=== PATIENT | male | born 1980 | race Two or more races ===

== ENCOUNTER 2020-05-19 14:37 | Emergency (ER) | payer SELFPAY ==
--- NOTE | 2020-05-19 15:03 | ER Document Report ---
ED General - General Chief Complaint: Rib Pain Stated Complaint: RIB INJURY Time Seen by Provider: 05/19/20 14:55 Primary Care Provider: [facility] [Provider Group] - Follow up as needed - HPI Notes: Patient is a 39-year-old male with no medical history who presents with right lower rib pain that began yesterday. Patient states he was in [facility] and did a maneuver where he felt a sudden "crunch" and sharp pain to his right lower ribs. He has tried a lidocaine patch and Robinson bandage with minimal relief. He denies shortness of breath, chest pain or any other injury. Patient is a current everyday smoker. Past Medical History - General Information source: Patient - Social History Smoking Status: Current Every Day Smoker Family History: Reviewed & Not Pertinent Review of Systems - Review of Systems Constitutional: No symptoms reported EENT: No symptoms reported Cardiovascular: No symptoms reported Respiratory: No symptoms reported Gastrointestinal: No symptoms reported Genitourinary: No symptoms reported Male Genitourinary: No symptoms reported Musculoskeletal: See HPI Skin: No symptoms reported Hematologic/Lymphatic: No symptoms reported Neurological/Psychological: No symptoms reported Physical Exam - Vital signs Vitals: Temp Pulse Resp BP Pulse Ox 97.9 F 59 L 18 138/73 H 95 05/19/20 14:43 05/19/20 14:43 05/19/20 14:43 05/19/20 14:43 05/19/20 14:43 - Notes Notes: PHYSICAL EXAMINATION: VITALS: Vitals reviewed and within normal limits. GENERAL: Well-appearing, well-nourished and in no acute distress. HEAD: Atraumatic, normocephalic. EYES: Pupils equal, round, and reactive to light, extraocular movements intact, sclera anicteric, conjunctiva are normal. ENT: Nares patent. Moist mucous membranes. Oropharynx clear without exudates. NECK: Normal range of motion, supple without lymphadenopathy. LUNGS: Breath sounds clear to auscultation bilaterally and equal. No wheezes, rales, or rhonchi. HEART: Regular, rate, and rhythm without murmurs. CHEST WALL: Tenderness with palpable step-off to right lower rib. No paradoxical chest wall movement. No abrasions or ecchymosis. ABDOMEN: Soft, nontender, normoactive bowel sounds. No guarding, no rebound. No masses appreciated. EXTREMITIES: Normal range of motion, no pitting or edema. No cyanosis. NEUROLOGICAL: No focal neurological deficits. Moves all extremities spontaneously and on command. PSYCH: Normal mood, normal affect. SKIN: Warm, Dry, normal turgor, no rashes or lesions noted. Course - Re-evaluation Re-evalutation: Patient presents after right lower rib injury, complaining of focal pain to the affected area. No tachypnea or hypoxemia at time of arrival. Chest x-ray without evidence of acute fracture, pneumothorax or pulmonary contusion. At this time will discharge with return precautions and follow-up recommendations. Verbal discharge instructions given at the bedside and opportunity for questions given. Medication warnings reviewed. Patient is in agreement with this plan and has verbalized understanding of return precautions and the need for primary care follow-up in the next 24-72 hours. - Vital Signs Vital signs: Temp Pulse Resp BP Pulse Ox 97.8 F 88 18 126/78 H 100 05/19/20 17:24 05/19/20 17:24 05/19/20 17:24 05/19/20 17:24 05/19/20 17:24 - Laboratory Results Critical Laboratory Results Reviewed: No Critical Results - Radiology Results Radiology Results Interpreted: Ribs w/Chest X-Ray 05/19/20 14:56 IMPRESSION: NO PNEUMOTHORAX. NO DISPLACED RIB FRACTURES. Critical Radiology Results Reviewed: No Critical Results Discharge - Discharge Clinical Impression: Rib injury Condition: Stable Disposition: HOME, SELF-CARE Instructions: Rib Contusion ([facility]) Forms: Return to Work Referrals: [facility] [Provider Group] - Follow up as needed
--- NOTE | 2020-05-19 16:09 | RADIOLOGY REPORT (SQ) ---
EXAM DESCRIPTION: RIBS RIGHT W/PA CHEST IMAGES COMPLETED DATE/TIME: 05/19/2020 3:29 pm REASON FOR STUDY: rib injury COMPARISON: None. TECHNIQUE: Frontal view of the chest and additional views of the right ribs acquired. NUMBER OF VIEWS: Five views LIMITATIONS: None. FINDINGS: FRONTAL CXR: No pneumothorax. No pleural effusion. No atelectasis or infiltrates. RIBS: No displaced rib fractures. No lytic or blastic bony lesions. OTHER: No other significant finding. IMPRESSION: NO PNEUMOTHORAX. NO DISPLACED RIB FRACTURES. COMMENT: SITE OF TRAUMA/COMPLAINT MARKED/STAMP COMPLETED: YES. TECHNICAL DOCUMENTATION: JOB ID: [id number] [employer]- All Rights Reserved Reading location - IP/workstation name: [email or web address]
[2020-05-19] MEDS ORDERED: KETOROLAC TROMETHAMINE 60 MG/2 ML SDV IM ONE (16:51)
[2020-05-19 17:25] VITALS: BP 126/78
== END 2020-05-19 17:24 | disposition home or self-care (01) ==
LOC: ER 14:37
DX: S29.9XXA Unspecified injury of thorax, initial encounter (principal); X58.XXXA Exposure to other specified factors, initial encounter; F17.200 Nicotine dependence, unspecified, uncomplicated
CPT/HCPCS: 99283